=== PATIENT | female | born 1945 | race Caucasian/White ===

== ENCOUNTER → 2016-08-15 13:00 | Outpatient (CLI) | payer MEDICARE ==
[~2016-08-15 13:00] MED LIST: ARICEPT10 MG PO; BRILINTA90 MG PO; CELEXA40 MG PO; LOPRESSOR25 MG PO; PRINIVIL20 MG PO; ZOCOR20 MG PO
[2016-09-18 09:48] VITALS: BMI 19.1
== END | disposition home or self-care (01) ==
LOC: D.RAD 13:00
DX: R13.12 Dysphagia, oropharyngeal phase (principal)

== ENCOUNTER 2016-09-18 08:29 | Day surgery (SDC) | payer MEDICARE ==
[~2016-09-18] VITALS: Ht 152.4 cm; Wt 44.5 kg
--- NOTE | ~2016-09-18 | OP ---
PATIENT NAME: ZONIA RENDON MEDICAL RECORD: [id number] :45 LOCATION:[facility] ADMISSION DATE: SURGEON: ADILENE CUEVAS MD DATE OF OPERATION: 09/18/2016 PROCEDURE: EGD with push endoscopy and fecal transplantation. REFERRING PHYSICIAN: Mathew Rendon MD INDICATIONS: Mrs. Rendon is a delightful 71-year-old woman with a history of recurrent persistent Clostridium difficile colitis. 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 diff infection. She has been on several courses of Flagyl and vancomycin, but has had positive C. diff in her stools. She has anywhere from 4 to 9 stools a day. As she has failed medical therapy, she presents for outpatient fecal transplantation. PREMEDICATIONS: Total IV anesthesia (propofol 100 mg). INSTRUMENT: Olympus video pediatric colonoscope. PROCEDURE AND FINDINGS: After receiving informed consent, Ms. Rendon's posterior pharynx was anesthetized with Cetacaine spray. She was placed in left lateral decubitus position and sedated as per anesthesia. After achieving an adequate level of sedation, the colonoscope was introduced per orally and advanced to 80-85 cm without difficulty. The esophageal mucosa was without erythema or ulcers. Small hiatal hernia is present. There were multiple small nonhemorrhagic erosions in the antrum of the stomach. Pylorus was patent and competent. There was mild erythema in the duodenal bulb. Otherwise, the duodenal and proximal jejunal mucosa had normal fold pattern. A 30 cc of transplant was deployed at approximately 80-85 cm and then ____ free water lavages followed. The scope was then withdrawn. Ms. Rendon tolerated the procedure well, no immediate complications. ASSESSMENT: 1. Small hiatal hernia. 2. Erosive gastritis. 3. Duodenitis. 4. Status post fecal transplant. RECOMMENDATIONS: 1. Resume home medications. 2. Probiotics. TRANSINT:[id number] Voice Confirmation ID: [id number] DOCUMENT ID: [id number] ADILENE CUEVAS MD CC: JULIETA MATHEW [id number] DICTATION DATE: 09/18/16 1110 STATISTICAL REPORTING ANALYST: 09/18/16 [id number] [place] [address]
[2016-09-18 09:33] LABS: EOSINOPHILS 3.5 % (0-7); HEMATOCRIT 36.5 % (36.0-48.0); IMMATURE GRANULOCYTES 0.1 % (0-5); LYMPHOCYTES 24.1 % (15-50); MCH 31.7 pg (26.0-34.0); MCHC 32.9 g/dL (31.0-37.0); MCV 96.3 fL (80.0-100.0); MEAN PLATELET VOLUME 10.6 fL (7.4-10.4); MONOCYTES 9.3 % (2-11); PLATELET COUNT 261 10x3/uL (130-400); RBC 3.79 10x6/uL (4.00-5.40); RDW 14.7 % (11.5-14.5); WBC 6.9 10x3/uL (4.8-10.8)
[2016-09-18] MEDS ORDERED: ARICEPT10 MG PO (09:38)
[2016-09-18] MEDS ORDERED: ZOCOR20 MG PO (09:38)
[2016-09-18] MEDS ORDERED: CELEXA40 MG PO (09:38)
[2016-09-18] MEDS ORDERED: BRILINTA90 MG PO (09:38)
[2016-09-18] MEDS ORDERED: PRINIVIL20 MG PO (09:38)
[2016-09-18 09:39] LABS: APTT 24.4 SECONDS (22.8-39.4); INR 0.88 (0.85-1.17); PROTIME 11.8 SECONDS (11.6-15.0)
[2016-09-18] MEDS ORDERED: LOPRESSOR25 MG PO (09:39)
[2016-09-18 09:44] LABS: ANION GAP 12.5 mmol/L (8-16); CALCIUM 9.3 mg/dL (8.5-10.1); CARBON DIOXIDE 28.6 mmol/L (21.0-32.0); CREATININE - SERUM 1.5 mg/dL (0.6-1.3); POTASSIUM - SERUM 4.1 mmol/L (3.5-5.1)
[2016-09-18 09:48] VITALS: BP 130/87; Ht 152.4 cm; Wt 44.5 kg
--- NOTE | 2016-09-18 12:19 | NUR ---
PT STILL PARTAKING IN FULL LIQUIDS. CLEANED FROM INCONTINENTS OF BOWEL AND BLADDER. BREIF PLACED ON PT PER 'S REQUEST. WILL BEGIN TO READY FOR DISCHARGE. VSS.
--- NOTE | 2016-09-18 12:58 | NUR ---
1225- IV D/C'D, PT TOLERATED. CATHETER INTACT 1235- DISCHARGE INSTRUCTIONS COMPLETED, PT'S VERBALIZED UNDERSTANDING. PAPERWORK SIGNED. 1240- PT DISCHARGED WITH VIA WHEELCHAIR
== END 2016-09-18 12:40 | disposition home or self-care (01) ==
LOC: D.OPS 08:29
PROVIDERS: Anesthesiology
DX: A04.7 Enterocolitis due to Clostridium difficile (principal); K44.9 Diaphragmatic hernia without obstruction or gangrene; K29.00 Acute gastritis without bleeding; K29.80 Duodenitis without bleeding; Z86.73 Personal history of transient ischemic attack (TIA), and cerebral infarction without residual deficits